=== PATIENT | female | born 1965 | race Caucasian/White ===

== ENCOUNTER → 2019-06-10 | Outpatient (CLI) | payer OTHER ==
[~2019-06-10] MED LIST: ADULT LOW DOSE81 MG PO; LOVASTAT20 PO; MULTIVITAMINS PO; PREMPRO 0.3 MG1 EACH PO; TOPAMAX 100 MG100 MG PO; WELLBUTRIN XL300 M1 PO
== END ==
LOC: RAD 14:10
DX: S82.451A Displaced comminuted fracture of shaft of right fibula, initial encounter for closed fracture (principal); T14.90XA Injury, unspecified, initial encounter; M25.561 Pain in right knee; M79.671 Pain in right foot; M79.604 Pain in right leg; M25.512 Pain in left shoulder; X58.XXXA Exposure to other specified factors, initial encounter; Y93.89 Activity, other specified; Y92.89 Other specified places as the place of occurrence of the external cause; Y99.8 Other external cause status

== ENCOUNTER → 2020-10-16 | Outpatient (CLI) | payer OTHER | LOC: RAD 14:07 | PROVIDERS: ATTEND Family Medicine | DX: M61.462 Other calcification of muscle, left lower leg (principal) ==

== ENCOUNTER 2021-02-11 14:29 | Inpatient (IN) | payer OTHER ==
[~2021-02-11] VITALS: Ht 165.1 cm; Wt 108.4 kg
[2021-02-11 14:41] VITALS: BP 105/67
[2021-02-11 14:45] LABS: URINE BLOOD 3+ (Negative); URINE CLARITY CLEAR; URINE COLOR YELLOW; URINE GLUCOSE-RANDOM* NEGATIVE (Negative); URINE KETONES 1+ (Negative); URINE LEUKOCYTES-REFLEX NEGATIVE (Negative); URINE NITRITE-REFLEX NEGATIVE (Negative); URINE PROTEIN (DIPSTICK) NEGATIVE (Negative); URINE SPECIFIC GRAVITY 1.025 (1.005-1.035); URINE UROBILINOGEN 0.2 E.U./dl (0.2-1.0)
[2021-02-11 14:49] LABS: ICTOTEST (BILI CONFIRMATORY) Negative (Negative); URINE BILIRUBIN NEGATIVE (Negative)
[2021-02-11] MEDS ORDERED: FUROSEMIDE 20 M20 MG PO (14:51)
[2021-02-11] MEDS ORDERED: KLOR-CON M1010 MEQ PO (14:52)
[2021-02-11] MEDS ORDERED: NORCO 10-325 T1 EACH PO (14:53)
[2021-02-11] MEDS ORDERED: RIZATRIPTAN10 MG PO (14:54)
[2021-02-11] MEDS ORDERED: EMGALITY120 MG/1 M SUBQ (14:54)
[2021-02-11 14:55] LABS: CALCIUM OXALATE 0-3 Few /LPF (None Seen); CASTS None Seen /LPF (None Seen); MUCUS 0-3 Light strn/LPF (None Seen); SQUAMOUS 0-3 Few /LPF (0-3); URINE WBC-REFLEX None Seen /HPF (0-5)
[2021-02-11] MEDS ORDERED: VALIUM10 MG PO (14:55)
[2021-02-11 14:56] LABS: BACTERIA-REFLEX 1-9 Few /HPF (None Seen); CRYSTALS None Seen /LPF (None Seen)
[2021-02-11] MEDS ORDERED: METOPROLOL SUCC50 MG PO (14:56)
[2021-02-11] MEDS ORDERED: VITAMIN D31250 MCG PO (14:57)
[2021-02-11] MEDS ORDERED: BENADRYL25 MG PO (14:57)
[2021-02-11] MEDS ORDERED: COLACE100 MG PO (14:58)
[2021-02-11] MEDS ORDERED: VYVANSE50 MG PO (14:58)
[2021-02-11 15:16] LABS: ABSOLUTE NEUTROPHILS 8.4 thou/uL (1.4-8.2); BASOPHILS 0.8 % (0.0-2.0); EOSINOPHILS 0.1 % (0.0-3.0); HEMATOCRIT 45.8 % (37.0-47.0); LYMPHOCYTES 7.6 % (24.0-44.0); MCH 29.6 pg (26.0-34.0); MCHC 32.8 g/dL (28.0-37.0); MCV 90.2 fL (80.0-100.0); MONOCYTES 3.1 % (1.0-8.0); PLATELET COUNT 225 thou/uL (150-400); POLYS 88.4 % (36.0-66.0); RBC 5.08 mil/uL (4.20-5.00); RDW 13.6 % (10.5-14.5); WBC 9.5 thou/uL (4.0-11.0)
[2021-02-11 15:20] LABS: CREATININE 1.3 mg/dL (0.6-1.0); POTASSIUM 3.7 mmol/L (3.5-5.1)
[2021-02-11 15:26] LABS: ALBUMIN 3.7 g/dL (3.4-5.0); TOTAL BILIRUBIN 0.5 mg/dL (0.2-1.0); TOTAL PROTEIN 7.8 g/dL (6.4-8.2)
[2021-02-11 16:53] VITALS: BP 106/66
[2021-02-11 17:39] VITALS: BP 104/72
[2021-02-11 17:55] VITALS: BP 97/54
[2021-02-11 19:35] VITALS: BP 102/71
--- NOTE | 2021-02-12 03:21 | NUR ---
ASSESSED AT START OF SHIFT. REPORT RECEIVED FROM DAY NURSE. PT A&OX4 REQUESTED HER NIGHT TIME MEDS. 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 IV INTACT AND FLUIDS INFUSING. PT UP WITH SBA TO THE BATHROOM. HYDROCODONE GIVEN FOR PAIN. FALL PREC IN PLACE AND CALL LIGHT AT REACH WILL CONT TO MONITOR. PT NPO AT MIDINIGHT UROLOGY TO FOLLOW UP IN THE AM.
[2021-02-12 04:22] VITALS: BP 104/72
[2021-02-12 05:49] LABS: MCHC 33.3 g/dL (28.0-37.0); MCV 90.1 fL (80.0-100.0); RBC 4.22 mil/uL (4.20-5.00); RDW 14.1 % (10.5-14.5); WBC 6.3 thou/uL (4.0-11.0)
[2021-02-12 05:55] LABS: CALCIUM 7.9 mg/dL (8.5-10.1)
[2021-02-12 06:00] LABS: HEMOGLOBIN 12.6 gm/dL (12.0-15.0)
[2021-02-12 14:10] VITALS: BP 115/80
--- NOTE | 2021-02-12 14:31 | NUR ---
ASSUMED PT CARE THIS AM. PT A&OX4, ABLE TO MAKE NEEDS KNOWN. PATIENT HAS CONTRACTURES NOTED IN THE RIGHT HAND, REPORTS NUMBNESS AND TINGLING IN THIS HAND AT BASELINE. PATIENT IS ON ROOM AIR . REPORTED HEAD PAIN, GAVE MEDS PER EMAR AND RESPONDED WELL. PATIENT REMAINS NPO FOR PROCEDURE TODAY. PATIENT IS ABULATORY AND REMAINS CONTINENT. PATIENT INSTRUTED TO CALL WHEN NEEDED.
[2021-02-12 20:26] VITALS: BP 112/75
--- NOTE | 2021-02-13 03:04 | NUR ---
ASSUMED CARE OF PT AT 1900. PT IS A/O X4 AND IS UP AD JOAQUIN. PLEASANT AND COOPERATIVE WITH CARES. C/O MIGRAINE. PRN PAIN MEDICATION GIVEN DIRECTED WELL A COLD WASH CLOTH FOR HER HEAD. PARTIAL RELIEF NOTED. PT STATES THIS IS A CHRONIC ISSUE FOR HER AND THAT SHE IS PRESCRIBED MEDICATION FOR IT. VSS AFEBRILE. CALL LIGHT IS WITHIN REACH. PT CALLS OUT APPROPRIATELY. WILL CONTINUE TO MONITOR.
[2021-02-13 07:48] VITALS: BP 107/70
--- NOTE | 2021-02-13 11:21 | NUR ---
Assumed care of pt at 0700. Pt a&ox4. Pt c/o migraine. IVF infusing. Surgery scheduled for today at 1450. SBA. RA. Call light within reach. Will continue to monitor.
[2021-02-13 12:06] VITALS: BP 116/79
--- NOTE | 2021-02-13 14:16 | NUR ---
ASSESSMENT: CM REVIEWED CHART AND SPOKE WITH PT AT THE BEDSIDE. PT IS ALERT AND ORIENTED X4. PTS IS ALSO BY BEDSIDE. PT WAS ADMITTED DUE TO HYDROPHROSIS AND IS TO HAVE CYSTO TODAY. PT REPORTS THAT HE IS FULLY INDEPENDENT WITH ADLS AND AMBULATION. PT REPORTS HAVING A RAMP TO ENTER THE HOME AND NO STEPS SHE HAS TO USE ONCE INSIDE. PT REPORTS NO HX OF HH OR SNF. CM DISCUSSED ROLE. PT DOES NOT ANTICIPATE HAVING ANY NEEDS FROM CM.
[2021-02-13 18:57] VITALS: BP 116/79
[2021-02-13 19:29] VITALS: BP 104/72
--- NOTE | 2021-02-14 15:08 | PATH ---
[facility] [place] [address] PATHOLOGY RPT PROCEDURE Name: FÁTIMA HEREDIA Room #: 447-P DIS IN M.R.#: [id number] Admission: 02/11/21 Date of : 61 Discharge: 02/13/21 Report #: [id number] Path Case #: [id number] [facility] Accession Number: [id number] . 01 Material submitted: . ureter - LEFT URETERAL STONE. Modifiers: left . 01 Clinical history: . CYSTOSCOPY WITH STONE MANIPULATION . 02 Diagnosis: Left Ureteral Stone: - Consistent with calculi. - The specimen is sent out for further processing. - Report pending outside analysis with results to follow in an addendum. [facility] 02/14/2021 0722 Local . 02 Electronically signed: . Farshad Salas MD, Pathologist NPI- [id number] . 01 Gross description: . Received fresh and labeled "Fátima Heredia and left ureteral stone". Received is a sandoval brown calculi measuring 0.5 x 0.3 x 0.3 cm. The specimen is sent out for further processing. Report pending outside analysis with results to follow in an addendum.([facility]; 02/13/2021) . . [facility] 02/13/2021 2341 Local . 02 Pathologist provided ICD-10: N20.1 . 02 CPT . 688500 Specimen Comment: A courtesy copy of this report has been sent to [phone] Specimen Comment: [phone], Specimen Comment: Report sent to , DR GARCIA / DR CORTEZ Specimen Comment: A duplicate report has been generated due to demographic updates. Performed at: [address] [id number] MD Elvis Ram MD Phone: [phone] Performed at: [address] [address] PATHOLOGY RPT PROCEDURE Name: FÁTIMA HEREDIA Room #: 447-P DIS IN M.R.#: [id number] Admission: 02/11/21 Date of : 61 Discharge: 02/13/21 Report #: [id number] Path Case #: [id number] [address] [id number] MD Syd Daily MD Phone: [phone]
== END 2021-02-13 19:48 | disposition home or self-care (01) | DRG 660 ==
LOC: ER 14:29 → 4S 16:32 → EROBS 16:32 → 4S 17:48
PROVIDERS: Physician Assistant; ADMIT Hospitalist; ATTEND Hospitalist
PROC: BT1F1ZZ Fluoroscopy of Left Kidney, Ureter and Bladder using Low Osmolar Contrast (ICD-10-PCS; principal; 2021-02-13)
PROC: 0TC78ZZ Extirpation of Matter from Left Ureter, Via Natural or Artificial Opening Endoscopic (ICD-10-PCS; principal; 2021-02-13)
PROC: 0T778DZ Dilation of Left Ureter with Intraluminal Device, Via Natural or Artificial Opening Endoscopic (ICD-10-PCS; principal; 2021-02-13)
DX: N13.2 Hydronephrosis with renal and ureteral calculous obstruction (principal); F11.20 Opioid dependence, uncomplicated; G89.29 Other chronic pain; M54.5 Low back pain; G43.909 Migraine, unspecified, not intractable, without status migrainosus; Z20.822 Contact with and (suspected) exposure to COVID-19; Z90.710 Acquired absence of both cervix and uterus; Z87.442 Personal history of urinary calculi; Z88.8 Allergy status to other drugs, medicaments and biological substances; Z91.041 Radiographic dye allergy status; Z91.02 Food additives allergy status; Z91.013 Allergy to seafood; Z79.899 Other long term (current) drug therapy
CPT/HCPCS: 10195; 50010; 50101; 50164; 51179; 51767; 56674; 56815; 57160; 58565; 58732; 62110; 62900; 70005